=== PATIENT | male | born 1995 | race Caucasian/White ===

== ENCOUNTER 2020-02-20 20:37 | Emergency (ER) | payer OTHER ==
[~2020-02-20] VITALS: Ht 172.7 cm; Wt 86.2 kg
[2020-02-20 20:59] LABS: ABSOLUTE BASOPHILS 0.1 thou/uL (0.0-0.2); ABSOLUTE EOSINOPHILS 0.3 thou/uL (0.0-0.7); ABSOLUTE LYMPHOCYTES 3.1 thou/uL (0.8-5.3); ABSOLUTE MONOCYTES 0.9 thou/uL (0.0-1.2); ABSOLUTE NEUTROPHILS 5.9 thou/uL (1.6-8.1); BASOPHILS 0.9 %; EOSINOPHILS 2.6 %; HEMATOCRIT 41.8 % (42.0-52.0); HEMOGLOBIN 14.6 gm/dL (14.0-18.0); LYMPHOCYTES 30.2 %; MCH 29.7 pg (26.0-34.0); MCV 84.9 fL (80.0-100.0); MONOCYTES 8.5 %; MPV 8.7 fl. (7.2-11.1); NUCLEATED RBCS 0 /100WBC; PLATELET COUNT* 270 thou/uL (150-400); POLYS 57.8 %; RBC 4.93 mil/uL (4.50-6.00); RDW-CV 13.3 % (10.5-14.5); WBC 10.2 thou/uL (4.0-11.0)
[2020-02-20 21:09] LABS: CALCIUM 9.2 mg/dL (8.5-10.1); POTASSIUM 3.5 mmol/L (3.5-5.1)
[2020-02-20 21:13] LABS: ALBUMIN 4.2 g/dL (3.4-5.0); TOTAL BILIRUBIN 0.8 mg/dL (<0.1-1.0)
[2020-02-20] MEDS ORDERED: ZOFRAN ODT4 MG PO (21:37)
[2020-02-20 21:47] VITALS: BP 116/75
== END 2020-02-20 21:47 | disposition home or self-care (01) ==
LOC: M.ERS 20:37
PROVIDERS: Emergency Medicine
DX: R19.7 Diarrhea, unspecified (principal); R10.84 Generalized abdominal pain; J02.9 Acute pharyngitis, unspecified; R11.0 Nausea; J45.909 Unspecified asthma, uncomplicated; Z20.828 Contact with and (suspected) exposure to other viral communicable diseases

== ENCOUNTER 2020-03-05 19:00 | Emergency (ER) | payer OTHER ==
[~2020-03-05] VITALS: Ht 172.7 cm; Wt 89.4 kg
[~2020-03-05 19:00] MED LIST: ZOFRAN ODT4 MG PO
[2020-03-05] MEDS ORDERED: PROAIR HFA8.5 GM INH (19:15)
[2020-03-05 19:34] LABS: ABSOLUTE BASOPHILS 0.1 thou/uL (0.0-0.2); ABSOLUTE EOSINOPHILS 0.3 thou/uL (0.0-0.7); ABSOLUTE LYMPHOCYTES 3.4 thou/uL (0.8-5.3); ABSOLUTE MONOCYTES 0.8 thou/uL (0.0-1.2); ABSOLUTE NEUTROPHILS 5.4 thou/uL (1.6-8.1); BASOPHILS 0.7 %; EOSINOPHILS 3.1 %; HEMATOCRIT 42.7 % (42.0-52.0); HEMOGLOBIN 14.6 gm/dL (14.0-18.0); MCH 29.3 pg (26.0-34.0); MCHC 34.3 g/dL (28.0-37.0); MCV 85.4 fL (80.0-100.0); MONOCYTES 8.4 %; MPV 8.9 fl. (7.2-11.1); NUCLEATED RBCS 0 /100WBC; PLATELET COUNT* 262 thou/uL (150-400); POLYS 53.8 %; RDW-CV 13.8 % (10.5-14.5)
[2020-03-05 19:50] LABS: CALCIUM 8.8 mg/dL (8.5-10.1); CREATININE 0.9 mg/dL (0.6-1.3); POTASSIUM 3.6 mmol/L (3.5-5.1)
[2020-03-05 19:54] LABS: TOTAL BILIRUBIN 0.6 mg/dL (<0.1-1.0); TOTAL PROTEIN 7.7 g/dL (6.4-8.2)
[2020-03-05] MEDS ORDERED: MEDROLDOSEPACK PO (20:22)
[2020-03-05 20:34] VITALS: BP 137/79
== END 2020-03-05 20:35 | disposition home or self-care (01) ==
LOC: M.ERS 19:00
PROVIDERS: Physician Assistant
DX: M94.0 Chondrocostal junction syndrome [Tietze] (principal); R19.7 Diarrhea, unspecified; J45.909 Unspecified asthma, uncomplicated; Z79.899 Other long term (current) drug therapy